=== PATIENT | female | born 1965 | race Caucasian/White ===

== ENCOUNTER 2017-02-24 14:29 | Emergency (ER) | payer OTHER ==
[~2017-02-24] VITALS: Ht 165.1 cm; Wt 88.5 kg
[2017-02-24] MEDS ORDERED: LIDOCAINE HCL 1% 20 ML VIAL IJ ONE (15:00)
[2017-02-24] MEDS ORDERED: TDAP DIPH,PERTUSS,TET VAC/PF 0.5 ML DISP.SYRIN IM ONE ×2 (15:45→15:56)
--- NOTE | 2017-02-24 16:39 | NUR ---
PT WAS EVALUATED BY DR GARCIA. PT TOLERATED TO PROCEDURES AND MEDICATION WITHOUT COMPLICATIONS. PT WAS D/C TO HOME. D/C INSTRUCTIONS GIVEN TO THE PT.
[2017-02-24 16:42] VITALS: BP 136/79
== END 2017-02-24 16:43 | disposition home or self-care (01) ==
LOC: ER 14:29
DX: S61.211A Laceration without foreign body of left index finger without damage to nail, initial encounter (principal); I10 Essential (primary) hypertension; W45.8XXA Other foreign body or object entering through skin, initial encounter; Y93.G3 Activity, cooking and baking; Y92.89 Other specified places as the place of occurrence of the external cause; Y99.8 Other external cause status
CPT/HCPCS: 12001; 73140; 90471; 90715; 99284; A4663; J3490

== ENCOUNTER 2017-02-26 13:06 | Emergency (ER) | payer OTHER ==
[~2017-02-26] VITALS: Ht 167.6 cm; Wt 96.6 kg
--- NOTE | 2017-02-26 13:39 | NUR ---
DR SOMMERS AT THE BEDSIDE FOR MSE.
[2017-02-26] MEDS: IBUPROFEN 800 MG TABLET PO ONE (13:55)
[2017-02-26] MEDS: CEPHALEXIN MONOHYDRATE 500 MG CAPSULE PO ONE (13:55)
[2017-02-26 13:59] VITALS: BP 157/97
--- NOTE | 2017-02-26 14:00 | NUR ---
Patient discharged to home in stable conditon. Written and verbal after care instructions given. Patient verbalizes understanding of instructions.
[2017-02-26] MEDS ORDERED: CEPHALEXIN MONOHYDRATE 500 MG CAPSULE ONE (14:08)
[2017-02-26] MEDS ORDERED: IBUPROFEN 800 MG TABLET ONE (14:08)
== END 2017-02-26 14:00 | disposition home or self-care (01) ==
LOC: ER 13:07
DX: Z48.00 Encounter for change or removal of nonsurgical wound dressing (principal); L08.9 Local infection of the skin and subcutaneous tissue, unspecified; I10 Essential (primary) hypertension
CPT/HCPCS: A4663

== ENCOUNTER 2017-03-04 13:09 | Emergency (ER) | payer OTHER ==
[~2017-03-04] VITALS: Ht 167.6 cm; Wt 92.1 kg
--- NOTE | 2017-03-04 15:13 | NUR ---
PATIENT WAS SEEN AND EVAL BY DR OH IN [facility] [address]
[2017-03-04 15:19] VITALS: BP 129/78
--- NOTE | 2017-03-04 15:20 | NUR ---
Patient discharged to home in stable conditon. Written and verbal after care instructions given. Patient verbalizes understanding of instructions.
== END 2017-03-04 15:21 | disposition home or self-care (01) ==
LOC: ER 13:11
DX: Z48.00 Encounter for change or removal of nonsurgical wound dressing (principal); I10 Essential (primary) hypertension
CPT/HCPCS: 99281; A4663

== ENCOUNTER 2017-03-12 13:36 | Emergency (ER) | payer OTHER ==
[~2017-03-12] VITALS: Ht 167.6 cm; Wt 90.7 kg
--- NOTE | 2017-03-12 13:54 | NUR ---
Suture on LT index finger removed by Dr Bhatia.
[2017-03-12 13:58] VITALS: BP 133/77
--- NOTE | 2017-03-12 13:59 | NUR ---
Patient discharged to home in stable conditon. Written and verbal after care instructions given. Patient verbalizes understanding of instructions.
== END 2017-03-12 13:59 | disposition home or self-care (01) ==
LOC: ER 13:36
DX: Z48.02 Encounter for removal of sutures (principal); I10 Essential (primary) hypertension
CPT/HCPCS: 99283; A4663

== ENCOUNTER 2017-05-14 16:23 | Emergency (ER) | payer OTHER ==
[~2017-05-14] VITALS: Ht 167.6 cm; Wt 104.3 kg
--- NOTE | 2017-05-14 16:39 | NUR ---
Dr Lyons at the bedside for MSE.
[2017-05-14] MEDS ORDERED: IBUPROFEN 600 MG TABLET ONE (16:53)
[2017-05-14] MEDS ORDERED: DEXAMETHASONE 5 MG/5 ML LIQUID UDC ONE (16:54)
[2017-05-14] MEDS ORDERED: IBUPROFEN 600 MG TABLET PO ONE (17:00)
[2017-05-14] MEDS ORDERED: DEXAMETHASONE 5 MG/5 ML LIQUID UDC PO ONE (17:00)
--- NOTE | 2017-05-14 17:01 | NUR ---
Strap throast swab colleted and sent to lab.
--- NOTE | 2017-05-14 18:00 | NUR ---
Patient discharged to home in stable conditon. Written and verbal after care instructions given. Patient verbalizes understanding of instructions.
[2017-05-14 18:01] VITALS: BP 142/68
== END 2017-05-14 18:02 | disposition home or self-care (01) ==
LOC: ER 16:24
DX: J02.8 Acute pharyngitis due to other specified organisms (principal); B97.89 Other viral agents as the cause of diseases classified elsewhere; I10 Essential (primary) hypertension; Z88.6 Allergy status to analgesic agent
CPT/HCPCS: 36415; 86403; A4663; J8540

== ENCOUNTER 2021-01-29 19:50 | Emergency (ER) | payer MEDICAID, OTHER ==
[~2021-01-29] VITALS: Ht 167.6 cm; Wt 86.2 kg
--- NOTE | 2021-01-29 19:56 | NUR ---
AFTER TRAIGED, PATIENT WAS PLACED BACK TO WAITING ROOM DUE TO NO BEDS AVAILABLE IN THE ER.
--- NOTE | 2021-01-29 21:25 | NUR ---
PATIENT WAS CALLED TO BE PLACED IN ROOM BUT WAS NOT PRESENT IN THE WAITING ROOM.
--- NOTE | 2021-01-29 21:28 | NUR ---
PATIENT WENT TO REGISTRATION WINDOW AND STATES "I WILL SEE MY PMD IN THE MORNING. I DON'T WANT TO Wait anymore." PATIENT WAS TRAIGED BUT WAS NOT SEEN BY ERMD.
== END 2021-01-29 21:42 | disposition left against medical advice (07) ==
LOC: ER 19:51
DX: Z53.21 Procedure and treatment not carried out due to patient leaving prior to being seen by health care provider (principal)